=== PATIENT | female | born 1955 | race African-American/Black ===

== ENCOUNTER → 2018-02-20 | Outpatient (CLI) | payer BC, OTHER ==
--- NOTE | 2018-02-20 15:36 | RAD ---
DATE: 02/20/2018 EXAM: MAMMO EMERALD SCREENING BILATERAL HISTORY: Routine screening COMPARISON: None available This study was interpreted with the benefit of Computerized Aided Detection (CAD). The breast parenchyma is primarily fatty replaced. Breast parenchyma level density A. FINDINGS: 2-D and 3-D tomosynthesis imaging was performed in CC and MLO projections. Several tiny smooth nodules are noted in both breasts. No suspicious breast densities or architectural distortion is evident. Minimal benign type calcifications present. No suspicious microcalcifications are evident. Benign-appearing lymph node type densities are present in the right axilla. IMPRESSION: There is no mammographic evidence of malignancy in either breast. BI-RADS CATEGORY: 2 BENIGN FINDING(S) RECOMMENDED FOLLOW-UP: 12M 12 MONTH FOLLOW-UP PQRS compliance statement: Patient information was entered into a reminder system with a target due date for the next mammogram. Mammography is a sensitive method for finding small breast cancers, but it does not detect them all and is not a substitute for careful clinical examination. A negative mammogram does not negate a clinically suspicious finding and should not result in delay in biopsying a clinically suspicious abnormality. "Our facility is accredited by the [employer] Mammography [employer]."
== END | disposition home or self-care (01) ==
LOC: MAMMO 11:11
PROVIDERS: ATTEND Physician Assistant
DX: Z12.31 Encounter for screening mammogram for malignant neoplasm of breast (principal)
CPT/HCPCS: 77063; 77067

== ENCOUNTER → 2018-08-02 | Outpatient (CLI) | payer BC, OTHER ==
--- NOTE | 2018-08-02 10:35 | RAD ---
EXAM: CHEST 2 VIEWS. HISTORY: Chest pain, shortness of breath, asthma. COMPARISON: April 26, 2016. FINDINGS: Frontal and lateral views of the chest are obtained. The lungs are expanded to the 11th posterior interspaces. There are no confluent infiltrates. There is no pneumothorax or pleural effusion. The heart is not enlarged. Prominence of the right superior paratracheal stripe and a triangular opacity in the right cardiophrenic angle are stable chronically, and likely reflect tortuous vasculature and an epicardial fat pad, respectively. Cholecystectomy clips are noted. IMPRESSION: 1. Hyperinflation. Correlate for air trapping. No confluent infiltrates. Electronically signed by: Zaina Hernandez MD (08/02/2018 10:32 AM) [facility]
== END | disposition home or self-care (01) ==
LOC: RAD 10:11
PROVIDERS: ATTEND Physician Assistant
DX: R07.89 Other chest pain (principal); R06.02 Shortness of breath; J45.909 Unspecified asthma, uncomplicated
CPT/HCPCS: 71046

== ENCOUNTER → 2019-02-23 | Outpatient (CLI) | payer MEDICARE, BC, OTHER ==
--- NOTE | 2019-02-23 13:37 | RAD ---
DATE: 02/23/2019 EXAM: MAMMO EMERALD SCREENING BILATERAL HISTORY: Routine screening COMPARISON: 02/20/2018 This study was interpreted with the benefit of Computerized Aided Detection (CAD). Breast Density: FATTY The breast parenchyma is primarily fatty replaced. Breast parenchyma level density A. FINDINGS: 2-D and 3-D tomosynthesis imaging was performed in CC and MLO projections. There are several tiny nodular opacities in both breasts. No new or enlarging breast densities are seen. No spiculated mass or architectural distortion is evident. Benign type calcifications present. No suspicious microcalcifications have developed. IMPRESSION: Stable mammograms without evidence of malignancy. BI-RADS CATEGORY: 2 BENIGN FINDING(S) RECOMMENDED FOLLOW-UP: 12M 12 MONTH FOLLOW-UP PQRS compliance statement: Patient information was entered into a reminder system with a target due date for the next mammogram. Mammography is a sensitive method for finding small breast cancers, but it does not detect them all and is not a substitute for careful clinical examination. A negative mammogram does not negate a clinically suspicious finding and should not result in delay in biopsying a clinically suspicious abnormality. "Our facility is accredited by the [employer] Mammography Program."
== END | disposition home or self-care (01) ==
LOC: MAMMO 10:00
PROVIDERS: ATTEND Physician Assistant
DX: Z12.31 Encounter for screening mammogram for malignant neoplasm of breast (principal); N63.20 Unspecified lump in the left breast, unspecified quadrant; N63.10 Unspecified lump in the right breast, unspecified quadrant
CPT/HCPCS: 77063; 77067

== ENCOUNTER → 2019-06-05 | Outpatient (CLI) | payer MEDICARE, BC, OTHER ==
--- NOTE | 2019-06-05 12:46 | RAD ---
Indication: Abdominal pain TECHNIQUE: Upright and supine views of the abdomen and pelvis COMPARISON: None FINDINGS: Heart is normal in size. Visualized lungs are clear. No large pneumoperitoneum. Right upper quadrant clips suggesting cholecystectomy. No abnormally dilated bowel loops or air-fluid levels. No abnormal calcific densities projecting over the kidneys to suggest apparent renal stones. Visualized bones are within normal limits. Mild bilateral hip joint osteoarthritis. IMPRESSION: No acute radiographic findings. Electronically signed by: Baltazar Estevez DO (06/05/2019 12:44 PM) [facility]
== END | disposition home or self-care (01) ==
LOC: PMG 11:09
PROVIDERS: ATTEND Physician Assistant
DX: R10.30 Lower abdominal pain, unspecified (principal); M16.0 Bilateral primary osteoarthritis of hip
CPT/HCPCS: 74019

== ENCOUNTER → 2021-01-13 | Outpatient (CLI) | payer MEDICARE, BC, OTHER ==
--- NOTE | 2021-01-13 15:08 | RAD ---
DATE: 01/13/2021 11:05 AM EXAM: MAMMO EMERALD SCREENING BILATERAL HISTORY: Screening COMPARISON: 02/23/2019 Bilateral CC and MLO views of the breasts were performed. Bilateral breast tomosynthesis was performed in CC and MLO projections. This study was interpreted with the benefit of Computerized Aided Detection (CAD). FINDINGS: Breast Density: FATTY The Breast Parenchyma is primarily fatty replaced. Breast parenchyma level density A. No suspicious masses, microcalcifications or architectural distortion is present to suggest malignancy in either breast. The visualized axillae are unremarkable. IMPRESSION: No mammographic evidence of malignancy. BI-RADS CATEGORY: 1 NEGATIVE RECOMMENDED FOLLOW-UP: 12M 12 MONTH FOLLOW-UP Annual screening mammography is recommended, unless clinically indicated sooner based on symptoms or change in physical exam. PQRS compliance statement: Patient information was entered into a reminder system with a target due date for the next mammogram. Mammography is a sensitive method for finding small breast cancers, but it does not detect them all and is not a substitute for careful clinical examination. A negative mammogram does not negate a clinically suspicious finding and should not result in delay in biopsying a clinically suspicious abnormality. "Our facility is accredited by the [employer] Mammography Program."
== END ==
LOC: MAMMO 11:00
PROVIDERS: ATTEND Physician Assistant
DX: Z12.31 Encounter for screening mammogram for malignant neoplasm of breast (principal)
CPT/HCPCS: 77063; 77067